=== PATIENT | female | born 1965 | race Caucasian/White ===

== ENCOUNTER 2018-06-11 05:55 | Day surgery (SDC) | payer BC ==
[2018-06-07 08:48] LABS: HEMATOCRIT 40.6 % (36.0-48.0); HEMOGLOBIN 13.5 g/dL (12-16); MCH 29.5 pg (26.0-34.0); MCHC 33.3 g/dL (31.0-37.0); MCV 88.8 fL (80.0-100.0); MEAN PLATELET VOLUME 10.3 fL (7.4-10.4); RBC 4.57 10x6/uL (4.00-5.40); WBC 4.9 10x3/uL (4.8-10.8)
[~2018-06-11] VITALS: Ht 162.6 cm; Wt 70.3 kg
--- NOTE | ~2018-06-11 | OP ---
PATIENT NAME: PRUDENCE DONAHUE MEDICAL RECORD: [id number] :61 LOCATION:D.OPS ADMISSION DATE: SURGEON: CURTIS DORADO MD DATE OF OPERATION: 06/11/2018 PREOPERATIVE DIAGNOSES: 1. Carpal tunnel syndrome of the left wrist. 2. Trigger thumb of the left wrist. POSTOPERATIVE DIAGNOSES: 1. Carpal tunnel syndrome of the left wrist. 2. Trigger thumb of the left wrist. PROCEDURE: 1. Carpal tunnel release of the left wrist. 2. Trigger thumb release of the left hand. SURGEON: Curtis Dordao MD ANESTHESIA: General. INTRAOPERATIVE COMPLICATIONS: None. SUMMARY OF PATHOLOGIC FINDINGS: The patient has a very tight transverse carpal ligament consistent with preoperative diagnosis. The patient also had a substantial trigger thumb of the A1 kade. OPERATIVE SUMMARY IN DETAIL: After obtaining the appropriate preoperative orthopedic surgery consent as well as anesthetic consultation, evaluation and clearance, the patient was brought to the operating room and placed on the operating table in supine position. After TIVA anesthesia was administered, the patient's left upper extremity was prepped and draped in routine sterile fashion. Esmarch bandage was used as the tourniquet. It was placed approximately the mid left forearm and clamped. Both areas were locally infiltrated with 2% lidocaine plain. Attention was first turned to the carpal tunnel release. Midpalmar incision was made in line with the fourth metacarpal ray. It was taken down to the level of transverse carpal ligament. Median nerve was identified, protected throughout the case with a [place] elevator. Vik light knife was then used to release the transverse carpal ligament in its entirety under direct visualization. Having completed this, the wound was irrigated and closed with 4-0 Prolene in mattress style fashion. Attention was then turned to the base of the left thumb. Incision was made over the base of the left thumb. Gentle dissection was carried down to the A1 kade, which was incised in line with the tendon itself. The tendon had some areas of attritional changes, but no full thickness tearing was noted. The wound was irrigated and closed with 4-0 Prolene. Prior to sterile dressing, the area was further augmented with further 2% lidocaine plain. Sterile dressings were applied. The Esmarch was removed. The patient was awakened and taken to the recovery room in stable condition. All final needle and sponge counts were correct. TRANSINT:[id number] Voice Confirmation ID: [id number] DOCUMENT ID: [id number] OPERATIVE REPORT [id number] PRUDENCE DONAHUE MD, CURTIS LOPEZ at 1419 CC: [id number] DICTATION DATE: 06/11/18 1241 TELEPHONE OPERATOR: 06/11/18 1257 [facility] [place] 06/11/18 [place] [id number] [place] [id number]
[~2018-06-11 05:55] MED LIST: NEXIUM20 MG PO
[2018-06-11 06:22] VITALS: Ht 162.6 cm; Wt 70.3 kg
[2018-06-11] MEDS ORDERED: TYLENOL W/CODEI1 TAB PO (08:03)
== END 2018-06-11 09:20 | disposition home or self-care (01) ==
LOC: D.OPS 05:55 → D.PAN 07:30 → D.OPS 07:30 → D.PAN 11:15 → D.OPS 11:30
PROVIDERS: Anesthesiology
DX: G56.02 Carpal tunnel syndrome, left upper limb (principal); M65.312 Trigger thumb, left thumb